=== PATIENT | male | born 1995 | race African-American/Black ===

== ENCOUNTER 2024-11-16 15:36 | Emergency (ER) | payer OTHER ==
[~2024-11-16] VITALS: Ht 188 cm; Wt 91.0 kg
[2024-11-16 15:43] VITALS: O2SAT 98
[2024-11-16] MEDS: IBUPROFEN 600MG TABLET PO ONE (16:54)
[2024-11-16 16:57] VITALS: BP 116/71; PULSE 61; RESP 16; TEMP 37.1; O2SAT 100
== END 2024-11-16 16:47 | disposition home or self-care (01) ==
LOC: ER 15:36
DX: S16.1XXA Strain of muscle, fascia and tendon at neck level, initial encounter (principal); V43.62XA Car passenger injured in collision with other type car in traffic accident, initial encounter; Y93.89 Activity, other specified; Y92.410 Unspecified street and highway as the place of occurrence of the external cause; Y99.8 Other external cause status
CPT/HCPCS: 99282